=== PATIENT | male | born 1970 | race African-American/Black ===

== ENCOUNTER 2024-09-10 11:02 | Inpatient (IN) | payer OTHER ==
[2024-09-10 12:04] VITALS: BMI 27.9
[2024-09-10] MEDS ORDERED: ACETAMINOPHEN 325 MG TABLET (FP) PO PRN (12:05)
[2024-09-10] MEDS ORDERED: guaiFENesin 600 MG TABLET.ER (FP) PO PRN (12:05)
[2024-09-10] MEDS ORDERED: MAG HYDROX/AL HYDROX/SIMETH 30 ML UNIT-DOSE CUP PO PRN (12:05)
[2024-09-10] MEDS ORDERED: IBUPROFEN 600 MG TABLET (FP) PO PRN (12:05)
[2024-09-10] MEDS ORDERED: POLYETHYLENE GLYCOL (HEALTHYLAX) 3350 17 GM PACKET PO PRN (12:05)
[2024-09-10] MEDS ORDERED: BENZOCAINE/MENTHOL (CHLORASEPTIC ) LOZENGE MM PRN (12:05)
[2024-09-10] MEDS ORDERED: BENZONATATE 200 MG CAPSULE PO PRN (12:05)
[2024-09-10] MEDS ORDERED: LOPERAMIDE HCL 2 MG CAPSULE PO PRN (12:05)
[2024-09-10] MEDS ORDERED: IBUPROFEN 400 MG TABLET (FP) PO PRN (12:05)
[2024-09-10] MEDS ORDERED: NALOXONE (NARCAN) HCL 4 MG/0.1 ML SPRAY NS PRN (12:05)
[2024-09-10] MEDS ORDERED: MAGNESIUM HYDROX 2400MG/30ML ORAL SUSPENSION 30 ML CUP PO PRN (12:05)
[2024-09-10] MEDS: NICOTINE 7 MG/24 HOURS TOPICAL PATCH TD SCH (12:45)
[2024-09-10] MEDS: PRENATAL VITAMINS W/ FOLIC ACID TABLET (FP) PO SCH ×2 (14:54→15:56)
[2024-09-10] MEDS: amLODIPine BESYLATE 10 MG TABLET (FP) PO SCH ×2 (14:56→15:56)
[2024-09-10] MEDS: THIAMINE 100 MG TABLET PO SCH (22:26)
[2024-09-10] MEDS: MELATONIN 5 MG TABLETS PO SCH (22:26)
[2024-09-10] MEDS: traZODone HCL 50 MG TABLET (FP) PO SCH (22:29)
[2024-09-10] MEDS: OLANZapine 10 MG TABLET PO SCH (22:29)
[2024-09-11] MEDS: SERTRALINE HCL 50 MG TABLET (FP) PO SCH (09:55)
[2024-09-11 12:30] LABS: POTASSIUM 4.1 mmol/L (3.5-5.1)
[2024-09-11 12:31] LABS: HEMOGLOBIN 12.4 GM/dL (11.7-16.9); MCHC 32.5 g/dl (32.0-35.9); MEAN CELL VOLUME 95.2 fl (80-96); MEAN PLT VOLUME 10.2 fl (7.5-11.1); PLATELET COUNT 187 10^3/uL (134-434); RBC 3.99 M/mm3 (4.00-5.60); RDW 14.2 % (11.9-15.9); WHITE BLOOD COUNT 5.4 K/mm3 (4.0-10.0)
[2024-09-11 12:32] LABS: PH,URINE 7.5 (5.0-8.0); URINE APPEARANCE TURBID; URINE BILIRUBIN NEGATIVE (NEGATIVE); URINE COLOR YELLOW; URINE GLUCOSE (UA) NEGATIVE (NEGATIVE); URINE KETONE NEGATIVE (NEGATIVE); URINE LEUK ESTERASE NEGATIVE (NEGATIVE); URINE NITRITE NEGATIVE (NEGATIVE); URINE PROTEIN NEGATIVE (NEGATIVE)
[2024-09-11 12:38] LABS: CALCIUM 8.7 mg/dL (8.5-10.1)
[2024-09-11 12:39] LABS: ALBUMIN 3.4 g/dl (3.4-5.0); BLOOD UREA NITROGEN 14.3 mg/dL (7-18)
[2024-09-11 12:43] LABS: BILIRUBIN,TOTAL 0.5 mg/dL (0.2-1)
[2024-09-11 12:56] LABS: SYPHILIS W/ RPR CONF NON-REACTIVE (NONREACTIVE)
[2024-09-11 13:32] LABS: HIV INTERPRETATION NEGATIVE (NEGATIVE)
[2024-09-12] MEDS: amLODIPine BESYLATE 10 MG TABLET (FP) PO SCH (07:00)
[2024-09-12 12:22] VITALS: RESP 18
[2024-09-12] MEDS: hydrOXYzine PAMOATE 25 MG CAPSULE (FP) PO PRN (21:15)
[2024-09-14 06:49] VITALS: TEMP 97.6
[2024-09-14] MEDS: NALOXONE (NYS OPIOID OVERDOSE PROGRAM) 4 MG/0.1 ML SPRAY NS SCH (10:37)
[2024-09-14 11:32] VITALS: BP 140/72; PULSE 85
== END 2024-09-14 11:13 | disposition home or self-care (01) | DRG 772 ==
LOC: YASAS 11:02 → Y3NR 12:31 → Y5N 09-11 18:01
PROVIDERS: ADMIT Psychiatry & Neurology Pain Medicine; ATTEND Psychiatry & Neurology Pain Medicine
PROC: HZ42ZZZ Group Counseling for Substance Abuse Treatment, Cognitive-Behavioral (ICD-10-PCS; principal; 2024-09-10)
DX: F14.20 Cocaine dependence, uncomplicated (principal); F17.210 Nicotine dependence, cigarettes, uncomplicated; F20.0 Paranoid schizophrenia; F41.9 Anxiety disorder, unspecified; G47.00 Insomnia, unspecified; I10 Essential (primary) hypertension
CPT/HCPCS: 36415; 80053; 80305; 80307; 81003; 85027; 86780; 86803; 87389; 87811; 93005; 93010